=== PATIENT | male | born 1985 | race Caucasian/White ===

== ENCOUNTER 2018-04-16 21:33 | Emergency (ER) | payer MEDICAID ==
[2018-04-16] MEDS: DIPHTH/TET/ACEL PERTUSS (ADULT) 0.5 ML VIAL IM* (22:34)
== END 2018-04-16 23:06 | disposition home or self-care (01) ==
LOC: FTE 21:33
DX: S01.01XA Laceration without foreign body of scalp, initial encounter (principal); W22.8XXA Striking against or struck by other objects, initial encounter; Y92.9 Unspecified place or not applicable; Z23 Encounter for immunization
CPT/HCPCS: 12001; 90471; 90715; 99283-25

== ENCOUNTER 2018-04-23 19:47 | Emergency (ER) | payer MEDICAID | END 2018-04-23 20:45 | disposition home or self-care (01) | LOC: FTE 19:47 | DX: Z48.02 Encounter for removal of sutures (principal) | CPT/HCPCS: 99281; Z7502 ==